=== PATIENT | male | born 1995 | race Caucasian/White ===

== ENCOUNTER 2020-08-06 18:47 | Emergency (ER) | payer BC, OTHER ==
[~2020-08-06] VITALS: Ht 180.3 cm; Wt 112.2 kg
[2020-08-06 18:53] VITALS: BP 167/102
== END 2020-08-06 19:48 | disposition home or self-care (01) ==
LOC: ED 19:17
DX: L55.0 Sunburn of first degree (principal)
CPT/HCPCS: 99282